=== PATIENT | male | born 1980 ===

== ENCOUNTER 2021-06-06 00:51 | Emergency (ER) | payer SELFPAY ==
--- NOTE | 2021-06-06 02:32 | Event Note ---
Date: 06/06/21 Medical screening examination note: Verbal report received from emergency medical services EMS documentation not available at time of chart dictation 40-year-old gentleman who is currently on 1013, brought to the hospital by EMS with an EMS articulated complaint of patient complaining of jaw pain and upper abdominal discomfort. Prehospital EKG not consistent with STEMI. Patient resting comfortably in stretcher and in no acute distress. He is moving 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
--- NOTE | 2021-06-06 02:55 | XRay Report ---
XR abd series w cxr 1V INDICATION / CLINICAL INFORMATION: History of chest pain upper abdominal. COMPARISON: None available. TECHNIQUE: One view supine AP abdomen. FINDINGS: TUBES / LINES: None. BOWEL GAS PATTERN: No significant abnormality. FREE AIR / EXTRALUMINAL GAS: None seen. ADDITIONAL FINDINGS: No significant additional findings. IMPRESSION: 1. No significant abnormality. Signer Name: Varinder Anderson II, MD Signed: 06/06/2021 2:51 AM Workstation Name: [id number]
[2021-06-06 03:23] LABS: Basophils % (Auto) 0.4 % (0.0-1.8); Eosinophils # (Auto) 0.1 K/mm3 (0.0-0.4); Eosinophils % (Auto) 0.8 % (0.0-4.3); Hematocrit 41.6 % (35.5-45.6); Hemoglobin 14.6 gm/dl (11.8-15.2); Lymphocytes # (Auto) 1.7 K/mm3 (1.2-5.4); Lymphocytes % (Auto) 20.4 % (13.4-35.0); Mean Corpuscular HGB Conc 35 % (32-34); Mean Corpuscular Volume 89 fl (84-94); Monocytes # (Auto) 0.6 K/mm3 (0.0-0.8); Monocytes % (Auto) 7.1 % (0.0-7.3); Platelet Count 251 K/mm3 (140-440); Red Cell Distribution Width 12.4 % (13.2-15.2)
[2021-06-06 03:34] LABS: INR 0.91 (0.87-1.13)
[2021-06-06 03:38] LABS: Alanine Aminotransferase 16 units/L (7-56); Albumin 4.4 g/dL (3.9-5); Blood Urea Nitrogen 9 mg/dL (9-20); Calcium 9.4 mg/dL (8.4-10.2); Hemolysis Index 9
[2021-06-06 03:42] VITALS: BP 127/73
[2021-06-06 03:49] LABS: BUN/Creatinine Ratio 13
--- NOTE | 2021-06-06 06:08 | Emergency Department Report ---
ED General Adult HPI - General Chief complaint: Abdominal Pain Stated complaint: HEAD PAIN,MOUTH PAIN Time Seen by Provider: 06/06/21 05:58 Source: patient Mode of arrival: Stretcher Limitations: No Limitations - History of Present Illness Initial comments: Patient presents with a several day history of chest and abdominal pain. He describes it as a substernal pain and epigastric pain. The pain does not radiate. It is worse with inspiration. He has had no cough or congestion. He does not feel short of breath. Patient denies nausea or vomiting. There is no diarrhea. He has no history of trauma. Patient states he has never had pain like this before. It is worse with inspiration. It is described as an ache. There is a family history of heart disease, but he has no personal history of heart disease or heart attack. He has not had pain or swelling in the legs. There is no history of recent travel or immobility. Severity scale (0 -10): 8 - Related Data Allergies Allergy/AdvReac Type Severity Reaction Status Date / Time No Known Allergies Allergy Unverified 06/06/21 02:20 ED Review of Systems ROS: Stated complaint: HEAD PAIN,MOUTH PAIN Other details as noted in HPI Comment: All other systems reviewed and negative Constitutional: denies: fever Eyes: denies: eye pain ENT: denies: throat pain Respiratory: denies: cough Cardiovascular: as per HPI Endocrine: denies: unexplained weight loss Gastrointestinal: as per HPI Genitourinary: denies: dysuria Musculoskeletal: denies: back pain Skin: denies: rash Neurological: denies: headache Hematological/Lymphatic: denies: easy bruising ED Past Medical Hx - Past Medical History Previous Medical History?: Yes Additional medical history: Suicidal Attempt - Surgical History Past Surgical History?: No - Family History Family history: CAD/AK (Remote) - Social History Smoking Status: Never Smoker Substance Use Type: None ED Physical Exam - General Limitations: No Limitations, Other (Pulse ox noted and normal) General appearance: alert, in no apparent distress - Head Head exam: Present: atraumatic, normocephalic, normal inspection - Eye Eye exam: Present: normal appearance, PERRL, EOMI. Absent: scleral icterus - ENT ENT exam: Present: normal orophraynx, normal external ear exam - Neck Neck exam: Present: normal inspection. Absent: meningismus - Respiratory Respiratory exam: Present: normal lung sounds bilaterally. Absent: respiratory distress - Cardiovascular Cardiovascular Exam: Present: regular rate, normal rhythm - GI/Abdominal GI/Abdominal exam: Present: soft. Absent: distended, tenderness - Extremities Exam Extremities exam: Present: normal capillary refill. Absent: calf tenderness - Back Exam Back exam: Absent: CVA tenderness (R), CVA tenderness (L) - Neurological Exam Neurological exam: Present: alert, oriented X3, CN II-XII intact. Absent: motor sensory deficit - Psychiatric Psychiatric exam: Present: normal affect, normal mood - Skin Skin exam: Present: warm, dry ED Course Vital Signs 06/06/21 06/06/21 06/06/21 01:27 03:25 03:26 Temperature 98 F 98.9 F Pulse Rate 97 H 88 Respiratory 18 22 Rate Blood Pressure 130/76 Blood Pressure 127/73 [Left] O2 Sat by Pulse 100 99 99 Oximetry - Reevaluation(s) Reevaluation #1: 06/06/21 06:08 EKG was noted. Labs have been reviewed. Old records noted. Reevaluation #2: 06/06/21 07:32 Work-up was completed and the patient was discharged ED Medical Decision Making - Lab Data Result diagrams: 06/06/21 02:48 06/06/21 02:48 Rhythm strip: Normal sinus rhythm without ectopy. Monitor observe 10 seconds. - EKG Data -: EKG Interpreted by Me - EKG Data When compared to previous EKG there are: previous EKG unavailable 06/06/21 07:32 [id number]-EKG shows normal sinus rhythm at 93. Intervals are normal including a QRS of 103 and a QT corrected of 426. Patient has artifact noted. There is wander of the baseline. There is no ST elevation to suggest STEMI. There is no ST depression suggestive of ischemia. Patient does not have any evidence of ectopy. There is some mild left axis deviation. - Radiology Data Radiology results: report reviewed - Medical Decision Making Patient presents with chest pain and abdominal pain. He has had a negative troponin x2. There is no EKG change suggestive of STEMI. He does not have NSTEMI based on normal troponins. There is no radiographic evidence of pneumonia or pneumothorax. He does not have a pulse deficit or wide mediastinum to suggest aortic dissection. Pain is not pleuritic. Is not hypoxic. He is not tachycardic. I do not believe this represents pulmonary embolism. He has no risk factor for PE. He was treated symptomatically and referred for outpati ent evaluation and follow-up. Heart score is sufficiently low that would allow for outpatient management. Critical Care Time: No Critical care attestation.: If time is entered above; I have spent that time in minutes in the direct care of this critically ill patient, excluding procedure time. ED Disposition Clinical Impression: Substernal chest pain, Upper abdominal pain Disposition: HOME / SELF CARE / HOMELESS Is pt being admited?: No Condition: Stable Instructions: Nonspecific Chest Pain, Adult, Pain Without a Known Cause Additional Instructions: Drink plenty of water. Have a bland diet. Return for problems. Follow-up with your regular doctor for recheck and further evaluation. Continue home medications. Referrals: PAUL HOLDEN MD [Primary Care Provider] - 3-5 Days Print Language: KISWAHILI
--- NOTE | 2021-06-06 09:22 | Electrocardiograph Report ---
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
== END 2021-06-06 08:55 | disposition home or self-care (01) ==
LOC: ED 00:51
DX: R07.2 Precordial pain (principal); R10.9 Unspecified abdominal pain; Z79.899 Other long term (current) drug therapy
CPT/HCPCS: 36415; 74022; 80053; 80320; 83690; 84484; 85025; 85610; 93005; 99284; G0480